=== PATIENT | male | born 1960 | race Caucasian/White ===

== ENCOUNTER 2019-10-20 05:22 | Day surgery (SDC) | payer OTHER ==
[~2019-10-20] VITALS: Ht 177.8 cm; Wt 87.6 kg
[2019-10-20] MEDS ORDERED: MEVACOR10 MG PO (05:45)
[2019-10-20] MEDS ORDERED: TOPROL XL100 MG PO (05:45)
[2019-10-20] MEDS ORDERED: HCTZ 25MG TAB25 MG PO (05:46)
[2019-10-20] MEDS ORDERED: MASON NATURAL1200 MG PO (05:47)
[2019-10-20] MEDS ORDERED: ASPIRIN 81M81 MG/TA2 PO (05:47)
[2019-10-20] MEDS ORDERED: GERITOL COMPLET1 TA1 PO (05:47)
[2019-10-20 05:56] VITALS: BP 126/94; PULSE 67; TEMP 98
[2019-10-20 08:43] VITALS: BP 117/83; PULSE 72; TEMP 97.6
--- NOTE | 2019-10-20 08:43 | NUR ---
The patient arrived back to [facility] from the recovery room at this time. The patient appears alert and oriented and denies any pain or nausea at this time. Post operative vital signs were started at this time. The patient has some water from the recovery room and appears to be tolerating it well. The patient agrees to try some toast at this time. Call light is within reach. Will continue to monitor the patient.
[2019-10-20 08:58] VITALS: BP 119/86; PULSE 68
--- NOTE | 2019-10-20 08:58 | NUR ---
The patient is tolerating the toast well and denies wanting anything further at this time. Will continue to monitor the patient.
[2019-10-20 09:13] VITALS: BP 120/82; PULSE 72
--- NOTE | 2019-10-20 09:23 | NUR ---
The patient requested some more water at this time. The patient is going to attempt to void after he finsihes his next glass of water.
[2019-10-20 09:36] VITALS: BP 115/78; PULSE 62
--- NOTE | 2019-10-20 09:36 | NUR ---
The patient ambulated to the bathroom with the stand by assistance of one nurse and appeared to tolerate the activity well. The nurse instructed the patient that if he is able to void to go ahead and get dressed and then open his door and curtain when he is ready to review his discharge paperwork.
--- NOTE | 2019-10-20 09:45 | NUR ---
Discharge instructions were reviewed with the patient at this time. He verbalized understanding and has no questions for the nurse at this time. The patient's IV to his right hand was removed and a pressure dressing was applied to the site. The patient is dressed and ready to be escorted out. The patient's ride was contacted but was unable to be reached antonio message was left.
--- NOTE | 2019-10-20 10:25 | NUR ---
The patient was escorted out via wheelchair to a private vehicle by [employer]. The patient's belongings and discharge paperwork were sent with him. The patient's friend, Leti, is present to drive him home.
== END 2019-10-20 10:25 | disposition home or self-care (01) ==
LOC: SDCO 05:22
DX: N20.1 Calculus of ureter (principal); I10 Essential (primary) hypertension; E78.2 Mixed hyperlipidemia; Z79.82 Long term (current) use of aspirin; Z79.899 Other long term (current) drug therapy
CPT/HCPCS: C1769; C2617; J0690; J1100; J1885; J2405; J2704; J3010; J7120